=== PATIENT | male | born 1955 | race Caucasian/White ===

== ENCOUNTER 2019-09-02 01:14 | Outpatient (CLI) | payer MEDICARE, SELFPAY ==
--- NOTE | 2019-09-02 | DI.US_ITS ---
EXAM: US BREAST LT LIMITED CLINICAL HISTORY: LT BREAST LUMP, N63.42 TECHNIQUE: Ultrasound right breast performed using standard protocol. COMPARISON: [facility] DI[facility]NO[facility] BI from 09/02/2019 FINDINGS: There is mild breast tissue development in the subareolar region. No solid or cystic masses, hypoech oic foci, areas of abnormal shadowing, or areas of skin thickening. IMPRESSION: Mild gynecomastia. No sonographically suspicious finding. DATA REPOSITORY:
--- NOTE | 2019-09-02 | DI.MAMMO_ITS ---
EXAM: [facility] MAMMO DIAGNOSTIC BI CLINICAL HISTORY: LT BREAST LUMP, N63.42. TECHNIQUE: Full field digital CC and MLO mammographic images were obtained with 3D tomosynthesis and utilizing computer aided detection (CAD). COMPARISON: . None FINDINGS: Breast density: Scattered fibroglandular densities in the subareolar regions bilaterally, right great er than left. Masses/Architectural Distortion: None seen. Microcalcifications: No suspicious pleomorphic-type calcifications are seen. Skin Thickening/Nipple Retraction: None. Axilla: Unremarkable. IMPRESSION: Mild bilateral asymmetric gynecomastia, right greater than left. BI-RADS Category 2 - Benign Findings Breast Density - Category B - Scattered areas of fibroglandular density Unless there is more urgent need, screening mammography is recommended, as per [employer] guidelines. A negative radiographic report should not delay biopsy if a dominant or clinically suspicious mass is present. Up to ten percent of cancers are not identified on mammography. A negative report may reinforce clinical impression. Adenosis and dense breasts may obscure an underlying neoplasm. False positive reports average 6 to 10%. Patient will receive a letter notifying them of these results.
== END 2019-09-02 01:34 ==
PROVIDERS: PCP Family Medicine; Visit Provider Family Medicine
DX: Z12.39 Encounter for other screening for malignant neoplasm of breast (principal); N63.42 Unspecified lump in left breast, subareolar; R92.2 Inconclusive mammogram
CPT/HCPCS: 76642; 77062; 77066; G0279

== ENCOUNTER 2020-02-23 18:45 | Outpatient (REF) | payer MEDICARE, SELFPAY ==
[2020-02-23 13:40] LABS: Bilirubin Negative (Negative); Blood Negative (Negative); Clarity Sl Cloudy (Clear); Glucose Negative (Negative); Ketones Negative (Negative); Leukocyte Esterase Negative (Negative); Nitrite Negative (Negative); Specific Gravity >= 1.030 (1.005-1.025); Urobilinogen 0.2 EU/dL (Up TO 0.2)
[2020-02-24 17:31] LABS: PSA, Screening 2.5 ng/mL (0.0-4.5)
== END 2020-02-23 19:05 ==
LOC: NCHCN 18:45
PROVIDERS: PCP Family Medicine; Visit Provider Family Medicine
DX: N40.1 Benign prostatic hyperplasia with lower urinary tract symptoms (principal); R35.0 Frequency of micturition
CPT/HCPCS: 84153; 81003

== ENCOUNTER 2020-06-07 22:01 | Outpatient (REF) | payer MEDICARE, SELFPAY ==
[2020-06-07 20:06] LABS: C-Reactive Protein < 0.05 mg/dL (0.0-0.3)
[2020-06-09 09:17] LABS: Cyclic Citrullinated Peptide <2.5 U/mL (<5.0)
[2020-06-09 11:19] LABS: Lyme Ab w Rflx to Lyme Confirm Negative (Negative)
== END 2020-06-07 22:02 | disposition home or self-care (01) ==
LOC: NCHCN 22:01
PROVIDERS: PCP Family Medicine; Visit Provider Family Medicine
DX: M12.841 Other specific arthropathies, not elsewhere classified, right hand (principal); M12.842 Other specific arthropathies, not elsewhere classified, left hand
CPT/HCPCS: 86200; 86140; 86618

== ENCOUNTER 2020-07-13 13:55 | Outpatient (REF) | payer MEDICARE, SELFPAY ==
[2020-07-13 22:14] LABS: C-Reactive Protein 0.05 mg/dL (0.0-0.3)
[2020-07-14 16:35] LABS: Rheumatoid Factor <8.6 IU/mL (<12.0)
[2020-07-15 09:52] LABS: Syphilis Serology (RPR) Negative (Negative)
[2020-07-15 15:22] LABS: ANA Interpretation Negative (Negative)
== END 2020-07-13 13:56 | disposition home or self-care (01) ==
LOC: NCHCN 13:55
PROVIDERS: PCP Family Medicine; Visit Provider Family Medicine
DX: M12.841 Other specific arthropathies, not elsewhere classified, right hand (principal); M12.842 Other specific arthropathies, not elsewhere classified, left hand; R21 Rash and other nonspecific skin eruption
CPT/HCPCS: 86038; 86140; 86431; 86592

== ENCOUNTER 2022-02-01 10:15 | Outpatient (REF) | payer OTHER, SELFPAY ==
--- NOTE | 2022-02-01 10:00 | SKI_PTH ---
PATIENT: Casey Palma LOC: [facility] U#:[id number] AGE/SX: 66/M ROOM: RE02/01/[address]: Maico Rojas : 1955 BED: DIS: 02/01/2022 SPEC #: [id number] RECD: 02/02/22 11:50 STATUS: LIBRA REDann #: [id number] SHARA: 02/01/22 10:[address]: Maico Rojas DEPT: Surgical Specimen RECD BY: Lori Castro Tissues: 1 - SKIN BIOPSY(SHAVE/PUNCH) Procedures: SKIN LEVEL 4 Comments: [id number]
[2022-02-01 15:23] LABS: CREATININE 1.1 mg/dL (0.70-1.30); Calculated LDL 117 mg/dL (<100); Cholesterol 249 mg/dL (<200); Estimated GFR 74.96 (mL/min/1.73m2); Glucose 96 mg/dL (74-106); HDL Cholesterol 62 mg/dL (40-60); Triglyceride 354 mg/dL (<150)
[2022-02-02 10:02] LABS: PSA, Screening 2.7 ng/mL (<=4.5)
== END 2022-02-01 10:16 | disposition home or self-care (01) ==
LOC: NCHCN 10:15
PROVIDERS: PCP Family Medicine; Visit Provider Family Medicine
DX: E78.5 Hyperlipidemia, unspecified (principal); R79.89 Other specified abnormal findings of blood chemistry; F41.8 Other specified anxiety disorders; N40.1 Benign prostatic hyperplasia with lower urinary tract symptoms; Z12.5 Encounter for screening for malignant neoplasm of prostate
CPT/HCPCS: 80061; 82947; 84153; 82565; 88305

== ENCOUNTER 2022-04-04 13:41 | Outpatient (CLI) | payer MEDICARE, SELFPAY ==
--- NOTE | 2022-04-04 | DI.RAD_ITS ---
Exam(s) XR CHEST 2V PA LATERAL EXAM: XR CHEST 2V PA LATERAL CLINICAL HISTORY: COUGH R05.8 ELLIOTT R06.09. TECHNIQUE: 2D digital imaging was performed. COMPARISON: [facility] THORACIC SPINE from 09/29/2015 FINDINGS: 2 views: Heart size is normal. The mediastinum is not widened. Right lung is clear. Slight prominence of the left hilum noted, possibly within normal limits as seble ears similar to appearance of the hilum on thoracic spine images of September 2015. Also noted is a small calcified granuloma in the lower right lung field which is also unchanged from that prior study. No new infiltrates nor pleural effusions. IMPRESSION: As above. Recommend follow-up chest x-ray in 3 months. DATA REPOSITORY: RADIATION DOSE DELIVERED:
== END 2022-04-04 14:01 ==
LOC: DI 15:30
PROVIDERS: PCP Family Medicine; Visit Provider Nurse Practitioner Family
DX: R05.8 Other specified cough (principal); R06.09 Other forms of dyspnea; R91.8 Other nonspecific abnormal finding of lung field
CPT/HCPCS: 71046

== ENCOUNTER 2023-03-31 15:53 | Outpatient (REF) | payer MEDICARE, SELFPAY ==
[2023-03-30 15:38] LABS: Abs Immature Grans 0.01 10^3/uL (0.0-0.06); Absolute Basophil Count 0.04 10^3/uL (0.0-0.2); Absolute Eosinophil Count 0.38 10^3/uL (0.0-0.7); Absolute Lymphocyte Count 2.09 10^3/uL (1.2-3.4); Absolute Monocyte Count 0.68 10^3/uL (0.1-0.8); Absolute Neutrophil Count 2.99 10^3/uL (1.2-6.7); Basophils % 0.6; Eosinophils % 6.1; HCT 43.4 % (40.0-50.0); HGB 14.5 g/dL (13.5-17.5); Immature Grans % 0.2; Lymphocytes % 33.8; MCH 31.3 pg (27.0-33.0); MCHC 33.4 % (32.0-36.0); MCV 94 fL (80-95); MPV 8.5 fL (8.0-11.0); Neutrophils % 48.3; Platelet Count 277 10^3/uL (130-400); RBC 4.63 10^6/uL (4.36-5.78); RDW 11.9 % (11.8-14.1); RDW-SD 41.3 fL; WBC 6.19 10^3/uL (4.4-10.8)
[2023-03-30 22:02] LABS: PSA, Screening 4.2 ng/mL (<=4.5)
== END 2023-03-31 15:54 | disposition home or self-care (01) ==
LOC: NCHCN 15:53
PROVIDERS: PCP Family Medicine; Visit Provider Family Medicine
DX: Z12.5 Encounter for screening for malignant neoplasm of prostate (principal); N40.1 Benign prostatic hyperplasia with lower urinary tract symptoms
CPT/HCPCS: 84153; 85025